=== PATIENT | male | born 1990 | race Caucasian/White ===

== ENCOUNTER 2021-01-04 09:29 | Emergency (ER) | payer SELFPAY ==
[2021-01-04 10:05] VITALS: BP 146/105; PULSE 76; RESP 16; O2SAT 100; BMI 20.9
--- NOTE | 2021-01-04 10:15 | ED_ITS ---
HPI - URI/Sore Throat General: Chief Complaint: Upper Respiratory Infection Stated Complaint: weak, headache, loss of taste and smell Time Seen by Provider: 01/04/21 10:03 History of Present Illness: HPI Narrative: Patient is a 30-year-old male who comes to the ED with upper respiratory symptoms. Over the past couple days patient has had nasal drainage, congestion, dry cough body aches and nausea. He also reports that he has lost his sense of taste or smell. 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 Denies any chest pain, shortness of breath, abdominal pain, bladder or bowel symptoms. Associated symptoms: Reports nasal congestion; Deny abdominal pain, chills, chest pain, diarrhea, fever(s), headache(s), nausea or vomiting Review of Systems Const: Reports: body aches; Denies: fever(s), chills or fatigue Eyes: Denies: change in vision or eye discomfort ENMT: Reports: nasal discharge and nasal congestion; Denies: throat pain or odynophagia Card: Denies: chest pain, palpitations, edema, swelling of feet/ankles, dyspnea on exertion or orthopnea Resp: Reports: non-productive cough; Denies: dyspnea or productive cough GI: Denies: abdominal pain, nausea, vomiting, diarrhea, constipation or hematochezia : Denies: flank pain, difficulty urinating, dysuria or hematuria Musc: Denies: neck pain, back pain or extremity swelling Skin/Breast: Denies: rash or new lesions Neuro: Denies: headache(s), numbness in extremities or weakness in extremities Physical Exam Const: COMMON NORMALS: no acute distress, patient oriented x3 and alert GENERAL APPEARANCE: cooperative and comfortable HENMT: COMMON NORMALS: normocephalic HEAD & SCALP: normocephalic MOUTH: Normal oral and palatal mucosa present THROAT: posterior oropharynx normal and uvula midline Neck/C-Spine: COMMON NORMALS: supple GENERAL: Yes normal visual inspection Resp: COMMON NORMALS: normal respiratory effort, No retractions, No use of accessory muscles and clear to auscultation bilaterally AUSCULTATION: clear to auscultation bilaterally Cardio: COMMON NORMALS: regular rate, regular rhythm, S1 normal heart sound present, S2 normal heart sound present, No gallops present (Cardio), No clicks present (Cardio), No murmurs present (Cardio) and Peripheral pulses 2+ throughout RATE: regular rate RHYTHM: regular rhythm HEART SOUNDS: S1 normal heart sound present and S2 normal heart sound present PERIPHERAL PULSES: Peripheral pulses 2+ throughout GI: COMMON NORMALS: Normal to inspection, nondistended, normoactive bowel sounds present, Soft to palpation, non-tender and no masses PALPATION: Yes Soft to palpation : COMMON NORMALS: Yes no CVA tenderness BLADDER/KIDNEY EXAM: Yes no CVA tenderness Back/Pelvis: COMMON NORMALS: no CVA tenderness Extremity: COMMON NORMALS: normal to inspection Neuro: COMMON NORMALS: patient oriented x3 and moves all extremities SENSORIUM/ORIENTATION: Yes alert Skin: GENERAL SKIN EXAM: dry skin Course Vital Signs: Vital signs: Vital Signs Pulse Rate 76 01/04/21 10:56 Respiratory Rate 18 01/04/21 10:56 Blood Pressure 146/81 01/04/21 10:56 Pulse Oximetry 99 01/04/21 10:56 MDM - URI/Sore Throat MDM Narrative: Medical decision making narrative: Patient is a 30-year-old male comes to the ED with Covid symptoms. Patient appears nontoxic and is in no acute distress or having any trouble breathing. Vitals are stable. Covid antigen test was positive. Patient diagnosed with COVID-19 and he is stable for discharge home. Follow-up with PCP in 7 to 10 days reevaluation. Return to ED precautions given. Patient was given self quarantine instructions. Patient understood agree with plan. Lab Data: Labs: Lab Results 01/04/21 Range/Units 10:52 SARS-CoV-2 Ag (Rap id) Positive H (Negative) Imaging Data^: CXR: Attestation: I personally reviewed and interpreted this imaging study as follows: My impression: Chest x-ray showed no acute findings. Discharge Plan Discharge Patient Disposition: Home Clinical Impression: COVID-19 Condition: Stable Prescriptions: No Action No Known Home Medications RF: 0 Discharge Orders: Discharge ED (Routine); Ordered 01/04/21 Ordered By: Andrew Damon Discharge Diet: Regular Discharge Activity: Resume usual activity Patient Instructions: Viral Syndrome (ED) Activity Restrictions/Additional Instructions: Follow-up with medical provider as directed in 7-10 days. Self quarantine for the next 10 days starting from the onset of symptoms. Take ibuprofen or Tylenol for fevers. Drink plenty of fluids and stay hydrated. Symptom management with [id number] cough and nasal decongestant meds. Return to the ER or your medical provider if condition worsens. Please read and understand discharge instructions. If any questions, please ask Coding Level of Care Code ED Two Way Radio Technician for Rickey Fwd Exam Comprehensive
--- NOTE | 2021-01-04 10:26 | XRR_ITS ---
PROCEDURE INFORMATION: Exam: XR Chest Exam date and time: 01/04/2021 10:26 AM Age: 30 years old Clinical indication: Shortness of breath; Additional info: Cough TECHNIQUE: Imaging protocol: XR of the chest. Views: 1 view. COMPARISON: No relevant prior studies available. FINDINGS: Lungs: Unremarkable. No consolidation. Pleural spaces: Unremarkable. No pleural effusion. No pneumothorax. Heart/Mediastinum: Unremarkable. No cardiomegaly. Bones/joints: Unremarkable. XR/XR chest 1V portable [id number] IMPRESSION: No acute findings.
[2021-01-04 10:56] VITALS: BP 146/81; PULSE 76; RESP 18; O2SAT 99
[2021-01-04 12:13] LABS: SARS Covid-2 Antigen Positive (Negative)
[2021-01-04 12:27] VITALS: BP 124/85; PULSE 70; RESP 18; O2SAT 97
== END 2021-01-04 12:29 | disposition home or self-care (01) ==
PROVIDERS: Emergency Medicine; Emergency Provider Physician Assistant
DX: U07.1 COVID-19 (principal)
CPT/HCPCS: 71045; 87426; 99282

== ENCOUNTER → 2023-12-12 16:35 | Outpatient (BNVA) | payer MEDICAID, SELFPAY | PROVIDERS: Referring Provider Family Medicine; Visit Provider Specialist | DX: M65.341 Trigger finger, right ring finger (principal) | CPT/HCPCS: 73130 ==

== ENCOUNTER 2023-12-15 12:08 | Day surgery (SDC) | payer MEDICAID, SELFPAY ==
[2023-12-15] VITALS (10 sets, daily range): BP systolic 95–136; BP diastolic 48–88; PULSE 54–81; RESP 15–18; TEMP 36.3–36.8; O2SAT 97–100; BMI 21.4
[2023-12-15] MEDS: CELEcoxib 200 mg Capsule 400 MG PO ×2 (12:44)
[2023-12-15] MEDS: acetaminophen 1,000 MG/100 ML PIGGYBACK 400 MG IV (12:47)
[2023-12-15] MEDS: sodium chloride 0.9% 1,000 ML 30 ML IV (12:52)
--- NOTE | 2023-12-15 13:05 | ANES.PREANE2 ---
Pre-Anesthetic Assessment Height/Weight: Height 1.83 m Weight 71.894 kg Temp Pulse Resp BP Pulse Ox O2 Del Method 98.2 F 77 18 132/75 97 Room Air 12/15/23 12:34 12/15/23 12:34 12/15/23 12:34 12/15/23 12:34 12/15/23 12:34 12/15/23 12:35 Operation Date: 12/15/23 14:25 Proposed Procedures p RIGHT RING FINGER TRIGGER RELEASE(Right) - Cassidy Triana MD Familial anesthetic complications: none Was Beta Reese taken within 24 hours: N/A Was Clonidine taken within 24 hours: N/A Last intake: Intake Last Liquid Date 12/14/23 Last Liquid Time 21:30 Last Solid Date 12/14/23 Last Solid Time 18:00 Social No alcohol and No tobacco Exam alert, oriented x 3, clear to auscultation bilaterally and regular rate & rhythm Airway Mallampati: Class II Dentition: full Anesthetic Plan ASA status: 1 Anesthesia: General Risk of > 500 ml blood loss (7ml/kg in children): No Medications/Allergies Home Medications Medication Instructions Recorded Confirmed Last Taken Type No Known Home Medications 01/04/21 12/12/23 Unknown History Allergies Allergy/AdvReac Type Severity Reaction Status Date / Time No Known Allergies Allergy Verified 12/15/23 12:27 Current Medications Generic Name Dose Route Start Last Admin Trade Name Freq PRN Reason Stop Dose Admin Sodium Chloride 1,000 mls @ 30 mls/hr 12/15/23 12:30 12/15/23 12:52 Sodium Chloride 0.9% IV 12/16/23 12:29 30 mls/hr .Q24H GENESIS Administration Data Anesthesia Cardiac Studies: No Data to Display
--- NOTE | 2023-12-15 13:46 | W.PM.OPSUD ---
Surgery/Procedure H&P Update DATE OF PROCEDURE: December 15, 2023 DATE H&P PERFORMED: 12/06/23 H&P UPDATE INFORMATION: I have reviewed H&P completed within last 30 days, I have examined patient prior to procedure, No changes to prior documentation and H&P is in [facility] EMR on date indicated PLANNED PROCEDURE: Operation Date: 12/15/23 14:25 Proposed Procedures p RIGHT RING FINGER TRIGGER RELEASE(Right) - Cassidy Triana MD Related Problem List Diagnoses (1) Trigger ring finger of right hand:
[2023-12-15] MEDS: ceFAZolin 2,000 MG in sodium chloride 0.9% (plus) 50 ML 100 MG IV (13:52)
[2023-12-15] MEDS: BUPivacaine 0.5% INJ 30 mL XX (14:33)
--- NOTE | 2023-12-15 14:40 | ANE.PACU2 ---
Inpatient post-anesthesia follow up: Airway intact: Yes Vital signs: Temperature 98.2 F Pulse Rate 77 Respiratory Rate 18 Blood Pressure 132/75 Pulse Oximetry 97 Oxygen Delivery Me thod Room Air Oxygen Flow Rate 6 Fraction of Inspir ed Oxygen Hydration adequate: Yes Nausea and vomiting: No Pain level: 1 Mental status: Baseline
--- NOTE | 2023-12-15 14:52 | PM.OP ---
Operative Report Date of procedure: December 15, 2023 Pre-op diagnosis: Right ring finger triggering Post-op diagnosis: Right ring finger triggering Post-op findings: Very tight A1 jose a across the ring finger tendon Procedure done: Release right ring finger trigger Implants: None Specimens removed/disposition: None Surgeon: Cassidy Triana MD Research Phlebotomist: None Anesthesia: General (Per LMA, ASA 1) Estimated blood loss (mL): 2 Tourniquet time (min): 16 (At 250 mmHg) IV fluids (mL): 400 Urine output (mL): 0 (No Graham) Complications: None Findings: Significant compression across the flexor tendons by the A1 jose a Condition: stable Disposition: PACU (Then return to same-day surgery for discharge to home) Brief History: This 33-year-old gentleman presented to my office on December 12, 2023 complaining of pain in the right finger and triggering which precluded him from being able to make a full fist or fully extend the finger. His pain without movement was at a 0 of 10, but he had significant pain with movement, and if the finger got stuck, he had to reach across with his other hand to open his finger back up. This to be going on for over 6 months. After discussion, he wished to proceed with trigger finger release of the right ring finger. Consents were signed and questions were answered. Procedure: Patient was brought to the operating theater. He was placed on the operating room table. General anesthesia was administered, ASA 1, per LMA. Additionally, the patient was given Ancef 2 g preoperatively prophylactically. A tourniquet was placed high on the arm following exsanguination of the arm. Tourniquet time was 16 minutes at 250 mmHg. Surgical pause was performed prior to commencement of the surgical procedure. At the time of the surgical pause we identified the site and side of surgery. We also identified the patient's identity and appropriate administration of IV antibiotics. Following the surgical pause, an incision was made along the distal palmar crease beneath the ring finger. Dissection continued through the skin to the subcutaneous tissues using a scalpel. Blunt dissection was then utilized to spread soft tissues and allow access to the A1 jose a. It was then incised longitudinally and sharply using a knife. This was accomplished without difficulty and atraumatically. Once the A1 jose a was released, tendons were brought up out of the wound and evaluated. There were no gross masses on the tendons. Tendons were returned to normal position. We then irrigated the wounds and subsequently closed each with 3-0 nylon with an interrupted mattress type suture. Following closure of the wounds, the wounds were injected with bupivacaine into the subcutaneous tissues as a local anesthetic. Sterile dressing was then placed consisting of Dermabond, OpSite, fluffed fluffs, sterile soft roll, and an José Miguel wrap. The patient was returned to recovery in satisfactory condition. He will be discharged home to follow-up with me in the office. There were no complications and no specimens. Related Problem List Diagnoses (1) Trigger ring finger of right hand:
== END 2023-12-15 15:50 | disposition home or self-care (01) ==
PROVIDERS: PCP Family Medicine; Visit Provider Specialist
PROC: (CPT 26055; principal; 2023-12-15 14:15)
DX: M65.341 Trigger finger, right ring finger (principal)
CPT/HCPCS: 26055; J0131; J0690; J3010; J3490; J7030

== ENCOUNTER 2023-12-23 04:05 | Emergency (ER) | payer MEDICAID, SELFPAY ==
[2023-12-23 04:06] VITALS: BP 115/78; PULSE 104; RESP 18; TEMP 36.9; O2SAT 99; BMI 23.7
[2023-12-23] MEDS: ketorolac 60 mg/2 mL INJ IM (04:30)
--- NOTE | 2023-12-23 04:45 | ED_ITS ---
Documented by User: Adrián Liriano DO 12/23/23 22:41 HPI - Extremity Problem 2 General: Chief complaint: Extremity Injury, Upper Stated complaint: Hand pain Time Seen by Provider: 12/23/23 04:13 History of Present Illness: Patient presents to the ER with complaint of worsening right hand pain. Patient had trigger finger surgery done by Dr. Squires on 624. He was given prescription of hydrocodone. Patient stated that he went home for couple days the pain was not too bad then a couple more days of pain increased a little bit but the last 24 hours pain is increased a lot. Patient states his fingers are swollen and he thinks he may have an infection. Patient denies any discharge drainage or odor. Review of Systems 2 General: Reports: 10 or more systems reviewed and unremarkable except in HPI and below Physical Exam 2 Neck/C-Spine: COMMON NORMALS: no JVD Chest: COMMONS NORMALS: normal inspection of the chest and normal palpation of entire chest wall Resp: COMMON NORMALS: normal respiratory effort, No retractions, No use of accessory muscles and clear to auscultation bilaterally AUSCULTATION: clear to auscultation bilaterally Cardio: COMMON NORMALS: no JVD, regular rate, regular rhythm, S1 normal heart sound present, S2 normal heart sound present, No gallops present (Cardio), No clicks present (Cardio), No murmurs present (Cardio) and No rub (Cardio) R ATE: regular rate RHYTHM: regular rhythm HEART SOUNDS: S1 normal heart sound present and S2 normal heart sound present GI: COMMON NORMALS: Normal to inspection, nondistended, normoactive bowel sounds present, Soft to palpation, non-tender, No hepatosplenomegaly present and no masses PALPATION: Yes Soft to palpation and Yes No hepatosplenomegaly present Extremity: NARRATIVE EXTREMITY EXAM: Incision on right palm with sutures intact no obvious drainage erythema or purulence. Mild swelling to right fourth digit distal to the incision. Course 2 Vital Signs: Vital signs: Vital Signs Temperature 98.4 F 12/23/23 04:06 Pulse Rate 88 12/23/23 08:14 Respiratory Rate 16 12/23/23 08:14 Blood Pressure 115/78 12/23/23 08:14 Pulse Oximetry 96 12/23/23 08:14 MDM - Extremity (Nontraumatic) Medical Decision Making CBC was obtained which revealed a white count of 12.9, patient was given 60 mg Toradol IM, patient's care was transferred over to Dr. Lang at the end of the shift. Differential Diagnosis Unlikely herpes zoster, gout, cellulitis, superficial thrombophlebitis, deep venous thrombosis of upper extremity, lower extremity edema or deep vein thrombosis of lower extremity Medical Records I reviewed the patient's medical records. Lab Data I reviewed the patient's lab results. 12/23/23 05:52 Laboratory Results WBC 12.91 10^3/uL (3.29-11.43) H 12/23/23 05:52 RBC 4.63 10^6/uL (3.85-5.65) 12/23/23 05:52 Hgb 13.80 g/dL (11.27-16.99) 12/23/23 05:52 Hct 40.5 % (37-53) 12/23/23 05:52 MCV 87.5 fl (82-101) 12/23/23 05:52 MCH 29.8 pg (27-33) 12/23/23 05:52 MCHC 34.1 g/dL (30-55) 12/23/23 05:52 RDW 11.6 % (12.1-15.1) L 12/23/23 05:52 Plt Count 295 10^3/cmm (157-399) 12/23/23 05:52 MPV 9.3 fL (7.4-10.4) 12/23/23 05:52 Neut % (Auto) 75.4 % 12/23/23 05:52 Lymph % (Auto) 13.9 % 12/23/23 05:52 Bollinger % (Auto) 8.1 % 12/23/23 05:52 Eos % (Auto) 2.1 % 12/23/23 05:52 Baso % (Auto) 0.3 % 12/23/23 05:52 Neut # (Auto) 9.74 10^3/uL (1.8-7.7) H 12/23/23 05:52 Lymph # (Auto) 1.8 10^3/uL (0.8-4.8) 12/23/23 05:52 Bollinger # (Auto) 1.0 10^3/uL (0.2-0.9) H 12/23/23 05:52 Eos # (Auto) 0.3 10^3/uL (0.0-0.8) 12/23/23 05:52 Baso # (Auto) 0.0 10^3/uL (0.0-0.1) 12/23/23 05:52 Nucleated RBC % (auto) 0 % 12/23/23 05:52 Nucleated RBCs # 0.0 /100WBC 12/23/23 05:52 No radiology studies performed this visit Discharge Plan Discharge Patient Disposition: Home Clinical Impression: Trigger ring finger of right hand, Pain Condition: Stable Prescriptions: No Action prednisone 20 mg tablet See Rx Instructions PO DAILY Qty: 10 0RF Rx Instructions: Days 1-3: 2 tabs, Days 4-6: 1 tab, Days 7 & 8: 0.5 tab orally in the AM with food. cephalexin 500 mg capsule 500 mg PO TID Qty: 21 0RF hydrocodone-acetaminophen 5-325 mg tablet 1 tab PO TID PRN (Reason: pain) 5 Days Qty: 15 0RF Discharge Orders: Discharge ED (Routine); Ordered 12/23/23 Ordered By: Caprice Vázquez Referrals: Carlton Angela MD [Primary Care Provider] - Jake Damon DO [Physician] - (Go directly to the office this morning to have the hand evaluated.) Discharge Diet: Usual diet Discharge Activity: Limit activity as instructed Patient Instructions: Opioid Safety, Pain Management Activity Restrictions/Additional Instructions: Go directly to the orthopedic clinic to have the hand evaluated by Dr. Damon. Coding Level of Care Code ED Director Of Business Applications for Chg Fwd Documented by User: Caprice Vázquez MD 12/24/23 06:47 HPI - Extremity Problem 2 General: Chief complaint: Extremity Injury, Upper Stated complaint: Hand pain Time Seen by Provider: 12/23/23 04:13 History of Present Illness: Patient presents to the ER with complaint of worsening right hand pain. Patient had trigger finger surgery done by Dr. Squires on 624. He was given prescription of hydrocodone. Patient stated that he went home for couple days the pain was not too bad then a couple more days of pain increased a little bit but the last 24 hours pain is increased a lot. Patient states his fingers are swollen and he thinks he may have an infection. Patient denies any discharge drainage or odor. Patient indicates that he has had purulent drainage from the wound. Course 2 Vital Signs: Vital signs: Vital Signs Temperature 98.4 F 12/23/23 04:06 Pulse Rate 88 12/23/23 08:14 Respiratory Rate 16 12/23/23 08:14 Blood Pressure 115/78 12/23/23 08:14 Pulse Oximetry 96 12/23/23 08:14 MDM - Extremity (Nontraumatic) Medical Decision Making CBC was obtained which revealed a white count of 12.9, patient was given 60 mg Toradol IM, patient's care was transferred over to Dr. Lang at the end of the shift. I spoke with Dr. Damon and he will see the patient in the clinic this morning due to concern for possible infection. Lab Data 12/23/23 05:52 Laboratory Results WBC 12.91 10^3/uL (3.29-11.43) H 12/23/23 05:52 RBC 4.63 10^6/uL (3.85-5.65) 12/23/23 05:52 Hgb 13.80 g/dL (11.27-16.99) 12/23/23 05:52 Hct 40.5 % (37-53) 12/23/23 05:52 MCV 87.5 fl (82-101) 12/23/23 05:52 MCH 29.8 pg (27-33) 12/23/23 05:52 MCHC 34.1 g/dL (30-55) 12/23/23 05:52 RDW 11.6 % (12.1-15.1) L 12/23/23 05:52 Plt Count 295 10^3/cmm (157-399) 12/23/23 05:52 MPV 9.3 fL (7.4-10.4) 12/23/23 05:52 Neut % (Auto) 75.4 % 12/23/23 05:52 Lymph % (Auto) 13.9 % 12/23/23 05:52 Bollinger % (Auto) 8.1 % 12/23/23 05:52 Eos % (Auto) 2.1 % 12/23/23 05:52 Baso % (Auto) 0.3 % 12/23/23 05:52 Neut # (Auto) 9.74 10^3/uL (1.8-7.7) H 12/23/23 05:52 Lymph # (Auto) 1.8 10^3/uL (0.8-4.8) 12/23/23 05:52 Bollinger # (Auto) 1.0 10^3/uL (0.2-0.9) H 12/23/23 05:52 Eos # (Auto) 0.3 10^3/uL (0.0-0.8) 12/23/23 05:52 Baso # (Auto) 0.0 10^3/uL (0.0-0.1) 12/23/23 05:52 Nucleated RBC % (auto) 0 % 12/23/23 05:52 Nucleated RBCs # 0.0 /100WBC 12/23/23 05:52 Discharge Plan Discharge Patient Disposition: Home Clinical Impression: Trigger ring finger of right hand, Pain Condition: Stable Prescriptions: No Action prednisone 20 mg tablet See Rx Instructions PO DAILY Qty: 10 0RF Rx Instructions: Days 1-3: 2 tabs, Days 4-6: 1 tab, Days 7 & 8: 0.5 tab orally in the AM with food. cephalexin 500 mg capsule 500 mg PO TID Qty: 21 0RF hydrocodone-acetaminophen 5-325 mg tablet 1 tab PO TID PRN (Reason: pain) 5 Days Qty: 15 0RF Discharge Orders: Discharge ED (Routine); Ordered 12/23/23 Ordered By: Caprice Vázquez Referrals: Carlton Angela MD [Primary Care Provider] - Jake Damon DO [Physician] - (Go directly to the office this morning to have the hand evaluated.) Discharge Diet: Usual diet Discharge Activity: Limit activity as instructed Patient Instructions: Opioid Safety, Pain Management Activity Restrictions/Additional Instructions: Go directly to the orthopedic clinic to have the hand evaluated by Dr. Damon. Coding Level of Care Code ED Director Of Business Applications for Rickey Almanzar
[2023-12-23 05:55] LABS: Basophils % 0.3 %; Eosinophils # 0.3 10^3/uL (0.0-0.8); Eosinophils % 2.1 %; Hematocrit 40.5 % (37-53); Lymphocytes # 1.8 10^3/uL (0.8-4.8); Lymphocytes % 13.9 %; Mean Corpuscular HGB Conc 34.1 g/dL (30-55); Mean Corpuscular Hemoglobin 29.8 pg (27-33); Mean Corpuscular Volume 87.5 fl (82-101); Mean Platelet Volume 9.3 fL (7.4-10.4); Monocytes % 8.1 %; Neutrophils # 9.74 10^3/uL (1.8-7.7); Neutrophils % 75.4 %; Nucleated Red Blood Cells % 0 %; Platelet Count 295 10^3/cmm (157-399); Red Blood Count 4.63 10^6/uL (3.85-5.65); Red Cell Distribution Width 11.6 % (12.1-15.1); White Blood Count 12.91 10^3/uL (3.29-11.43)
[2023-12-23 08:13] VITALS: RESP 16
[2023-12-23] MEDS: oxyCODONE-APAP 5-325 mg Tablet 1 TAB PO (08:13)
[2023-12-23 08:14] VITALS: BP 115/78; PULSE 88; RESP 16; O2SAT 96
== END 2023-12-23 08:15 | disposition home or self-care (01) ==
PROVIDERS: Emergency Medicine; Emergency Provider Emergency Medicine; PCP Family Medicine
DX: M65.341 Trigger finger, right ring finger (principal); M79.641 Pain in right hand; Z98.890 Other specified postprocedural states
CPT/HCPCS: 36415; 85025; 96372; 99284; J1885